=== PATIENT | female | born 1950 | race Caucasian/White ===

== ENCOUNTER → 2018-05-31 16:05 | Outpatient (CLI) | payer MEDICARE, OTHER, SELFPAY | PROVIDERS: PCP Nurse Practitioner Family | DX: H34.02 Transient retinal artery occlusion, left eye (principal) | CPT/HCPCS: 93306 ==

== ENCOUNTER → 2018-06-17 10:30 | Outpatient (CLI) | payer MEDICARE, OTHER, SELFPAY ==
--- NOTE | 2018-06-17 10:25 | BI_ITS ---
MAMMOGRAPHY - BILATERAL SCREENING REASON FOR EXAM: Female, 67 years old. Routine annual screening examination. PERTINENT HISTORY: Non-contributory. TECHNIQUE: Digital bilateral breast blanca (3D mammographic acquisition) in the CC and MLO projections. 2-D mediolateral oblique (MLO) and craniocaudad (CC) views of both breasts were obtained. CAD: Full Field Digital Mammography with Computer Added Detection was performed. COMPARISON: No comparison mammograms available at this time. If any prior films become available, an addendum to this report can be generated. FINDINGS: Breast Composition: The breasts are almost entirely fatty. There are no dominant masses or suspicious calcifications. No other significant abnormalities are identified. BI/SCREENING MAMM (CAD), BILAT IMPRESSION: Negative screening mammogram. Yearly followup mammogram recommended. (A) ASSESSMENT CATEGORY: BIRADS Category 1: Negative. A letter regarding these results will be sent to the patient by the facility within 30 days. Approximately 10% of breast cancers are not detected by mammography. A normal mammogram should not delay biopsy of a clinically suspicious abnormality. [id number] Electronically Signed: Bharathi Conroy MD at 14:47 EDT Tel [phone], Service support ,
== END ==
PROVIDERS: Visit Provider Nurse Practitioner Family
DX: Z12.31 Encounter for screening mammogram for malignant neoplasm of breast (principal)
CPT/HCPCS: 77063; 77067

== ENCOUNTER → 2024-11-18 | Outpatient (CLI) | payer MEDICARE, OTHER, SELFPAY ==
--- NOTE | 2024-11-18 15:12 | CT_ITS ---
PROCEDURE: EXTREMITY LOWER WITHOUT CONTRA REASON FOR EXAM: Planning for right hip replacement. [facility] protocol. TECHNIQUE: Multiple axial tomographic images of the hip joint, knee joint and ankle joint were obtained. Coronal and sagittal reconstruction was obtained as well. CONTRAST: No intravenous contrast administration. COMPARISON: None. FINDINGS: Bones: Marked degree of joint space narrowing and osteoarthritis of the right hip joint with subchondral cystic changes of the acetabulum and right femoral head. Degenerative spur formation of the right femoral head. Imaging of the right knee was obtained. The patient is status post right medial compartment joint replacement. Soft Tissues: Unremarkable. CT/Extremity Lower without Contra IMPRESSION: Marked degree of joint space narrowing and osteoarthritis of the right hip join t as described. Status post medial right knee joint replacement. One or more dose reduction techniques were used (e.g., Automated exposure contr ol, adjustment of the mA and/or kV according to patient size, use of iterative reconstruction technique). Reading Location: [id number]
== END | disposition home or self-care (01) ==
LOC: CT 15:06
PROVIDERS: PCP Family Medicine; Referring Provider Student in an Organized Health Care Education/Training Program; Visit Provider Student in an Organized Health Care Education/Training Program
DX: M16.11 Unilateral primary osteoarthritis, right hip (principal)
CPT/HCPCS: 73700

== ENCOUNTER 2024-12-11 05:41 | Day surgery (SDC) | payer MEDICARE, OTHER, SELFPAY ==
--- NOTE | 2024-11-25 11:58 | EKG12_ITS ---
Test Reason : PREOP Blood Pressure : */* mmHG Vent. Rate : 71 BPM Atrial Rate : 71 BPM P-R Int : 162 ms QRS Dur : 112 ms QT Int : 420 ms P-R-T Axes : 34 -33 4 degrees QTcB Int : 456 ms Sinus rhythm with Premature supraventricular complexes Left axis deviation Septal infarct , age undetermined Abnormal ECG Confirmed by Evert Hoffmann ([id number]), writer editor LYNN STREETER ([id number]) on 11/26/2024 5:55:20 AM Referred By: Casa Kuo Confirmed By: Evert Hoffmann
[2024-11-25 12:31] LABS: Absolute Lymphocyte Count 2.42 X10^3/uL (0.83-4.51); Absolute Neutrophil Count 3.5 X10^3/uL (2.0-7.7); Basophil# 0.05 X10^3/uL; Basophil% 0.8 % (0-1); Eosinophil# 0.17 X10^3/uL; Eosinophils% 2.6 % (0-5); Hematocrit 39.5 % (37-47); Hemoglobin 13.2 g/dL (12.0-15.0); Lymphocyte # 2.42 X10^3/ul (0.83-4.51); Lymphocyte % 36.4 % (19-41); Mean Corp Hgb Conc 33.4 g/dL (32-36); Mean Corpuscular Hgb 29.3 pg (27.0-32.0); Mean Corpuscular Volume 87.6 fL (81-99); Mean Platelet Vol. 10.4 fl (6.2-12.0); Monocyte# 0.47 X10^3/uL; Monocyte% 7.1 % (0-10); NRBC Flagged by Analyzer 0 % (0-5); Neutrophil # 3.52 X10^3/uL (2.7-7.7); Neutrophil % 52.9 % (47-70); Platelet Count 299 K/mm3 (150-450); RBC Distribution Width CV 12.7 % (11.6-14.6); RBC Distribution Width SD 40.4 fl (35.1-43.9); Red Blood Count 4.51 M/mm3 (4.2-5.4); White Blood Count 6.6 K/mm3 (4.4-11.0)
[2024-11-25 13:08] LABS: ALB/GLOB Ratio 1.5 RATIO (0.9-2.4); AST(SGOT) 18 U/L (<=31); Alanine Aminotransfer ALT/SGPT 16 U/L (<=34); Albumin, Serum 4.3 g/dL (3.4-4.8); Alkaline Phosphatase 84 U/L (35-104); Anion Gap 13 (5-15); BUN 18 mg/dL (4-19); BUN/Creat Ratio 21.9 RATIO (10-20); Calcium,Total 9.5 mg/dL (7.6-11.0); Carbon Dioxide 19.8 mmol/L (21.0-32.0); Chloride 105 mmol/L (98-108); Creatinine, Serum 0.84 mg/dL (0.70-1.20); EST Glomerular Filtration Rate 74 (>60); Globulin 2.8 g/dL (2.2-4.2); Glucose 107 mg/dL (70-99); Magnesium 2.1 mg/dL (1.5-2.2); Potassium 4.3 mmol/L (3.3-5.1); Protein, Total 7.1 g/dL (5.9-8.4); Sodium Level 138 mmol/L (133-145); Total Bilirubin 0.28 mg/dL (0.00-1.30)
[2024-11-25 14:15] LABS: Cholesterol 267 mg/dL (<=200); High Density Lipoprotein 69 mg/dL; Low Density Lipoprotein Calc. 167 mg/dL; Triglycerides 154 mg/dL; Very Low Density Lipoprotein 31 mg/dL (5-40); cholesterol:hdl ratio screen 3.88
--- NOTE | 2024-11-26 09:23 | PAT.ANESEVAL ---
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 When Was Last Pacemaker Check QUESTION #4 FULL TEXT: You/Your Family Experience fever (hyperthermia) with Anesthesia Last Oral Intake Last Oral intake: Last Oral Intake NPO since Meds taken in AM with sips of water? 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 Female Yes 11/24/24 11:41 HX of Motion Sickness No 11/24/24 11:41 HX of N/V After Surgery Yes 11/24/24 11:41 Non-Smoker Yes 11/24/24 11:41 Duration of Surgery greater Yes 11/24/24 11:41 than 60 minutes Number of Risk Factors 4 11/24/24 11:41 PONV Score Severe Risk 11/24/24 11:41 Respiratory Assessment Respiratory Assessment - jet dyeing machine operator: Respiratory Tract Infection Hx - jet dyeing machine operator Hx Respiratory Tract Infection No 11/24/24 11:41 STOP Sleep Apnea STOP Sleep Apnea - jet dyeing machine operator: STOP Sleep Apnea - jet dyeing machine operator Hx Hypertension Yes: controlled after wt 11/24/24 11:41 loss Hx Sleep Apnea No 11/24/24 11:41 CPAP No 07/06/15 21:33 BIPAP Do you snore loudly (louder No 11/24/24 11:41 than talking or can be heard Do you often feel tired/ No 11/24/24 11:41 fatigued/ sleepy during daytime? Has anyone observed you stop No 11/24/24 11:41 breathing during sleep? STOP Results Negative 11/24/24 11:41 QUESTION #5 FULL TEXT : Do you snore loudly (louder than talking or can be heard through closed doors)? 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 Specify any problems Hx of Preganancy in last 3 No 11/24/24 11:41 Months Nurse Filling Out Transfusion MGRIFFITH 11/24/24 11:41 & Questions: Date: 11/24/24 11/24/24 11:41 Time: 11:42 11/24/24 11:41 Patient unable to answer at this time (ie. confused, unrespo /Reproduction History /Reproductive History - jet dyeing machine operator: /Reproductive Hx- jet dyeing machine operator Hx Now No 11/24/24 11:41 Gestational Age (in weeks): EDC: Hx Hx Para Hx Section SAB No 11/24/24 11:41 [facility] Medical History (Updated 11/24/24 @ 11:51 by Cynthia Perdomo) Wears glasses Alcohol use Arthritis PONV (postoperative nausea and vomiting) Non-smoker History of echocardiogram Home Medications ?Medication ?Instructions ?Recorded ?Last Taken ?Type loratadine-pseudoephedrine ER 10 1 tab PO DAILY 06/24/15 Unknown History mg-240 mg tablet,extended [id number] (Loratadine-D) acetaminophen 650 mg 650 mg PO DAILY PRN pain 11/24/24 Unknown History tablet,extended release fluticasone propionate 50 1 spray intranasal DAILY PRN 11/24/24 Unknown History mcg/actuation nasal allergy symptoms spray,suspension (Flonase Allergy Relief) [id number] 8 mg-folic 400 1 tab PO DAILY 11/24/24 Unknown History mcg-K 50 mcg-lutein 300 mcg tablet (Cent[facility] Women 50 Plus) Allergy/AdvReac Type Severity Reaction Status Date / Time chlorhexidine Allergy Rash Verified 11/24/24 11:34 chlorhexidine gluconate Allergy Rash Verified 11/24/24 11:34 (From Hibiclens) nickel Allergy Rash Verified 11/24/24 11:34 phenobarbital Allergy Rash Verified 11/24/24 11:34 hydromorphone HCl (From AdvReac Other Verified 11/24/24 11:34 Dilaudid) Surgical History (Updated 11/24/24 @ 11:51 by Cynthia Perdomo) History of esophagogastroduodenoscopy (EGD) History of colonoscopy History of cholecystectomy History of kidney removal History of thumb surgery History of partial hysterectomy History of tonsillectomy and adenoidectomy History of knee replacement procedure of right knee History of bilateral cataract extraction History of total left knee replacement (TKR) Social History Smoking Status: Never smoker Audit: Pertinent Findings Pertinent Findings EKG Perinent findings: 11/25/2024 sinus rhythm with PVCs left axis deviation septal infarct age undetermined Echo (EF%) pertinent findings: 05/31/2018 EF 60% PA pressure 26 Recommendation Anesthesia Recommendation Anesthesia recommendation: OPTIMIZED for anesthesia
[2024-12-11] VITALS (14 sets, daily range): BP systolic 95–136; BP diastolic 47–76; PULSE 63–82; RESP 16–18; TEMP 36.1–36.6; O2SAT 88–99; BMI 36.6
[2024-12-11] MEDS: Magnesium 1 GM over 15 mins IV (06:04)
[2024-12-11] MEDS: Lactated Ringers 1,000 ML 999 ML IV ×2 (06:06→10:52)
[2024-12-11] MEDS: Gabapentin 600 MG Tablet PO (06:30)
[2024-12-11] MEDS: Acetaminophen 500 MG Tablet 1000 MG PO (06:30)
--- NOTE | 2024-12-11 06:39 | PRE.ANES_ITS ---
ASA Classification* ASA Classification ASA Classification: 2 Assessment & Plan Anesthesia* Anesthesia Assessment Anesthesia Assessment: Discussed sedation and/or anesthesia options, risks, benefits, and alternatives with patient/parents/legal guardian/POA. Questions invited. The patient/parents/legal guardian/POA seems to understand and agrees to proceed with anesthesia plan. Reviewed the physical assessment, medical history, allergy history and patient home medications list prior to surgery/procedure/anesthetic and documented any changes. Performed airway and anesthesia risk assessments. Anesthesia Type Anesthesia Type: General History Source History Obtained from:: Patient and Chart Anesthesia Focused Assessment* Temperature: 97.0 F Pulse Rate: 80 Blood Pressure: 128/75 Respiratory Rate: 18 Pulse Ox: 97 Oxygen Delivery Method: Room Air Airway Assessment Mouth opens: >3 cm Mallampati Score: I Teeth Condition: Intact Neck Range of motion (ROM): Full ROM Focused Labs Anesthesia Preop lab: CBC WBC 6.6 K/mm3 (4.4-11.0) 11/25/24 12:11/25/24 RBC 4.51 M/mm3 (4.2-5.4) 11/25/24 12:11/25/24 Hgb 13.2 g/dL (12.0-15.0) 11/25/24 12:11/25/24 Hct 39.5 % (37-47) 11/25/24 12:11/25/24 Plt Count 299 K/mm3 (150-450) 11/25/24 12:11/25/24 CHEMISTRY Potassium 4.3 mmol/L (3.3-5.1) 11/25/24 12:11/25/24 Sodium 138 mmol/L (133-145) 11/25/24 12:11/25/24 Magnesium 2.1 mg/dL (1.5-2.2) 11/25/24 12:11/25/24 BUN 18 mg/dL (4-19) 11/25/24 12:11/25/24 Creatinine 0.84 mg/dL (0.70-1.20) 11/25/24 12:08 11/25/24 Glucose 107 mg/dL (70-99) H 11/25/24 12:11/25/24 COAG PT 13.5 SECONDS (11.7-14.9) 06/07/15 09:24 Pre-Assessment Diagnosis/Proposed Procedure Planned Operative Procedure(s): (R) Total Hip Replacement Robotic Arm Assist Anesthesia History 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 When Was Last Pacemaker Check QUESTION #4 FULL TEXT: You/Your Family Experience fever (hyperthermia) with Anesthesia Last Oral Intake Last Oral intake: Last Oral Intake NPO since 04:00 12/11/24 06:13 Meds taken in AM with sips of No 12/11/24 06:13 water? 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 - oracle erp architect Female Yes 11/24/24 11:41 HX of Motion Sickness No 11/24/24 11:41 HX of N/V After Surgery Yes 11/24/24 11:41 Non-Smoker Yes 11/24/24 11:41 Duration of Surgery greater Yes 11/24/24 11:41 than 60 minutes Number of Risk Factors 4 11/24/24 11:41 PONV Score Severe Risk 11/24/24 11:41 Height & Weight Height & Weight: Anesthesia: Height & Weight Height 5 ft 2 in 12/11/24 06:13 Weight: 91 kg 12/11/24 06:13 Body Mass Index (BMI) 36.6 12/11/24 06:13 Respiratory Assessment Respiratory Assessment - oracle erp architect: Respiratory Tract Infection Hx - oracle erp architect Hx Respiratory Tract Infection No 11/24/24 11:41 STOP Sleep Apnea STOP Sleep Apnea - oracle erp architect: STOP Sleep Apnea - oracle erp architect Hx Hypertension Yes: controlled after wt 11/24/24 11:41 loss Hx Sleep Apnea No 11/24/24 11:41 CPAP No 07/06/15 21:33 BIPAP Do you snore loudly (louder No 11/24/24 11:41 than talking or can be heard Do you often feel tired/ No 11/24/24 11:41 fatigued/ sleepy during daytime? Has anyone observed you stop No 11/24/24 11:41 breathing during sleep? STOP Results Negative 11/24/24 11:41 QUESTION #5 FULL TEXT : Do you snore loudly (louder than talking or can be heard through closed doors)? 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 Specify any problems Hx of Preganancy in last 3 No 11/24/24 11:41 Months Nurse Filling Out Transfusion MGRIFFITH 11/24/24 11:41 & Questions: Date: 11/24/24 11/24/24 11:41 Time: 11:42 11/24/24 11:41 Patient unable to answer at this time (ie. confused, unrespo /Reproduction History /Reproductive History - oracle erp architect: /Reproductive Hx- oracle erp architect Hx Now No 11/24/24 11:41 Gestational Age (in weeks): EDC: Hx Hx Para Hx Section SAB No 11/24/24 11:41 Active Medications Active Medications: Current Medications Generic Name Dose Route Start Last Admin Trade Name Freq PRN Reason Stop Dose Admin Acetaminophen 1,000 mg 12/11/24 10:00 12/11/24 06:30 Acetaminophen 500 Mg Tablet PO 12/11/24 10:01 1,000 mg X1 ONE Administration Sodium Chloride 77.4 ml/ 0 ml 12/11/24 10:00 Ropivacaine 200 mg/ OPERA.SITE 12/11/24 10:01 Epinephrine HCl 0.6 mg/ X1 ONE Ketorolac Tromethamine 30 mg/ Morphine Sulfate 5 mg Dexamethasone Sodium Phosphate 10 mg 12/11/24 10:00 Dexamethasone 10 Mg/Ml Vial IV 12/11/24 10:01 X1 ONE Gabapentin 600 mg 12/11/24 10:00 12/11/24 06:30 Gabapentin 600 Mg Tablet PO 12/11/24 10:01 600 mg X1 ONE Administration Lactated Ringer's 1,000 mls @ 999 mls/hr 12/11/24 10:00 12/11/24 06:06 IV 12/11/24 11:00 999 mls/hr .Q1H1M HAILEE Administration Cefazolin Sodium 2 gm/ N/A 20 mls @ 400 mls/hr 12/11/24 10:00 IV 12/11/24 10:02 PREOP ONE Tranexamic Acid 1,000 mg/ 110 mls @ 660 mls/hr 12/11/24 10:00 Sodium Chloride IV 12/11/24 10:09 X1 ONE Tranexamic Acid 1,000 mg/ 110 mls @ 660 mls/hr 12/11/24 11:00 Sodium Chloride IV 12/11/24 11:09 X1 ONE Lactated Ringer's 1,000 mls @ 999 mls/hr 12/11/24 11:00 IV 12/11/24 12:00 .Q1H1M HAILEE Lactated Ringer's 1,000 mls @ 125 mls/hr 12/11/24 12:00 IV 12/11/24 19:59 .Q8H HAILEE Magnesium Sulfate 1 gm/ 102 mls @ 408 mls/hr 12/11/24 10:00 12/11/24 06:04 Dextrose IV 12/11/24 10:14 408 mls/hr X1 ONE Administration Insulin Human Lispro 1 - 6 unit 12/11/24 10:00 Insulin Lispro 100 Unit/Ml Insuln.Pen SC 12/11/24 16:00 Q4H PRN PRN BG>/= 180, SEE PROTOCOL Protocol PFSH Medical History Wears glasses Alcohol use Arthritis PONV (postoperative nausea and vomiting) Non-smoker History of echocardiogram Home Medications ?Medication ?Instructions ?Recorded ?Last Taken ?Type loratadine-pseudoephedrine ER 10 1 tab PO DAILY 12/10/24 History mg-240 mg tablet,extended [id number] (Loratadine-D) acetaminophen 650 mg 650 mg PO DAILY PRN pain 12/16 Unknown History tablet,extended release fluticasone propionate 50 1 spray intranasal DAILY PRN 11/24/24 12/11/24 History mcg/actuation nasal allergy symptoms spray,suspension (Flonase Allergy Relief) [id number] 8 mg-folic 400 1 tab PO DAILY 11/2412/04/24 History mcg-K 50 mcg-lutein 300 mcg tablet (Century Women 50 Plus) Allergy/AdvReac Type Severity Reaction Status Date / Time chlorhexidine Allergy Rash Verified 12/11/24 06:03 chlorhexidine gluconate Allergy Rash Verified 12/11/24 06:03 (From Hibiclens) nickel Allergy Rash Verified 12/11/24 06:03 phenobarbital Allergy Rash Verified 12/11/24 06:03 hydromorphone HCl (From AdvReac Other Verified 12/11/24 06:03 Dilaudid) Surgical History History of esophagogastroduodenoscopy (EGD) History of colonoscopy History of cholecystectomy History of kidney removal History of thumb surgery History of partial hysterectomy History of tonsillectomy and adenoidectomy History of knee replacement procedure of right knee History of bilateral cataract extraction History of total left knee replacement (TKR) Social History Smoking Status: Never smoker Review of Systems (Anesthesia) ROS Narrative System reviewed and no additional complaints, except as documented.
--- NOTE | 2024-12-11 07:30 | HIP_PTH ---
PATIENT: DANAE LEAL LOC: [facility] [place] U#:[id number] AGE/SX: 74/F ROOM: RE12/11/[address]: Dr. Casa Kuo DO : 1950 BED: DIS: 12/11/2024 SPEC #: [id number] RECD: 12/11/24 10:29 STATUS: ANTHONY OBED #: [id number] GALE: 12/11/24 07:[address]: Casa Kuo DEPT: SURGICAL PATHOLOGY RECD BY: El Robertson ENTERED: 12/11/24 11:23 SP TYPE: TOTAL HIP OTHR DR: Sena Andrade PA-C Tissues: A - Hip, NOS Procedures: Decalcification bone/plaque Surgery Specimen Level III HEADER OPERATION: ERAS, total hip replacement robotic arm assist PRE-OP DIAGNOSIS: Arthritis TISSUE SUBMITTED: A- Femoral head, right hip MICROSCOPIC DIAGNOSIS A. Right femoral head, total hip arthroplasty: * Articular bone with osteoarthritic reactive and degenerative changes. MICROSCOPIC DESCRIPTION Slides are reviewed. GROSS DESCRIPTION A. Received in fixative is one container labeled with the patient's name and designated Right femoral head. The specimen consists of a femoral head measuring 4.5 x 4.7 x 5.8 cm. A applications sales representative . The section will be submitted after decalcification in one cassette. CHRIS/ 12/11/2024 CPT:01142,25142
[2024-12-11] MEDS: Cefazolin 2 GM in Syringe 10 ML IV (07:56)
[2024-12-11 07:59] LABS: Bedside Glucose 133 mg/dL (74-106)
[2024-12-11] MEDS: TXA 1000mg in NS100 100ml (IVPB at Incision) 660 MG IV (08:20)
[2024-12-11] MEDS: dexAMETHasone 10 MG/ML Vial IV (08:20)
[2024-12-11] MEDS: JPS (Morphine 10mg/ml) OPERA.SITE (09:10)
[2024-12-11] MEDS: TXA 1000mg in NS100 100ml (IVPB at Closure) 660 MG IV (09:30)
--- NOTE | 2024-12-11 10:25 | RAD_ITS ---
PROCEDURE: HIP MIN 2 VIEWS (PORTABLE) 12/11/2024 REASON FOR EXAM: POST OP Right total hip replacement. TECHNIQUE: Two views of the right hip were obtained. COMPARISON: None FINDINGS: The patient is status post right total hip replacement. There is good alignment. Postoperative soft tissue changes. Osteoarthritis of the left hip joint. RAD/Hip Min 2 Views (Portable) IMPRESSION: Status post right total hip replacement. There is good alignment. Postoperative soft tissue changes. [facility]
--- NOTE | 2024-12-11 10:51 | PCM.POST.ANE ---
Anesthesia: Postop Eval I Current Vital Signs Temperature: 97.6 F Pulse Rate: 81 Blood Pressure: 111/68 Respiratory Rate: 16 Pulse Ox: 98 Oxygen Delivery Method: Nasal Cannula Oxygen Flow Rate (L/min): 3 Assessment Airway patent: Yes Spontaneous unlabored respirations: Yes Mental status: Awake and Calm nausea: No Vomiting: No Anesthesia Complication: No Fluid Hydration Crystalloid volume administer (ml): 1,500 Total IV fluid infused: 1,500 Progress Note Anesthesia document: Postop Eval 1 completed: Yes
[2024-12-11] MEDS: oxyCODONE 5 MG Tablet PO (12:11)
[2024-12-11] MEDS: Cefazolin 1 GM/50 ML BAG IV (12:23)
--- NOTE | 2024-12-11 13:38 | SUR.PHASEII ---
PT Lexis notified that pt is ready for therapy visit.
--- NOTE | 2024-12-11 13:50 | PCM.OPRPT ---
Operative Report (Standard) Operative Information Date of Procedure: 12/11/24 Pre-Operative Diagnosis: Right hip osteoarthritis Post-Operative Diagnosis: Right hip osteoarthritis Surgery/Procedure Performed: Robotic arm assisted right total hip arthroplasty tip stretcher: Yes Deaf/Hard Of Hearing Specialist: Vicki Grubbs Tasks completed by property management assistant: Opening & closing and Implanting device Additional assistant professor of criminal justice?: No Type of Anesthesia: General RN Documented Start/Stop Times: Operation Date: 12/11/24 07:30 Case Time Into Pre-Op 12/11/24 05:49 Out of Pre-Op 12/11/24 07:39 Anesthesia Start 12/11/24 07:44 Into Room 12/11/24 07:44 Procedure Start 12/11/24 08:16 Procedure End 12/11/24 10:02 Anesthesia End 12/11/24 10:09 Out of Room 12/11/24 10:09 Into Recovery 12/11/24 10:11 Out of Recovery 12/11/24 11:32 Into Phase II Recovery 12/11/24 11:33 Procedure Start Time: 08:16 Procedure Stop Time: 10:02 Select all DRAINS/GRAFTS/IMPLANTS that apply: Implanted device Implanted device details: [place] insignia high offset hip stem size #4, Biolox delta ceramic V40 femoral head 36 mm -5 mm neck length, Trident X3 polyethylene insert, Trident 2 TriTanium cluster hole acetabular shell 48 mm diameter Estimated Blood Loss: 50 cc Specimen collected: Yes Description of specimen(s) removed: Right femoral head Description of surgery: Indications: This is an 74-year-old female seen in the outpatient setting for right hip pain. X-rays revealed severe right hip osteoarthritis. She has received several corticosteroid injections with diminishing relief. She failed oral [id number]-[id number] analgesics including NSAIDs and Tylenol, activity modification. I recommended surgical intervention the form of right total hip arthroplasty. I reviewed the procedure with the patient, its risk, benefits, alternatives. Risks included but were not limited to bleeding, infection, loss of life or limb, risk of anesthesia, neurovascular injury, persistent pain, instability, need for additional surgery, failure of orthopedic hardware, loosening, osteolysis, need for assistive devices long-term, leg length discrepancy. Patient expressed understanding wish to proceed with surgery. Description of procedure: I greeted the patient in same-day surgery holding area the day of surgery. She was identified by name, medical record number, and date of . All questions were answered to patient satisfaction. The operative extremity was marked with a surgical marker. Informed consent was confirmed with the patient. At time of her procedure, patient brought the operative suite and positioned supine initially on a standard operating table. General anesthesia was induced and endotracheal tube placed and secured. Patient was then positioned in a lateral decubitus position with the right side up. An axillary roll was placed under the patient's left axilla. The left fibular head was free. We then prepped and draped the right lower extremity in normal, sterile orthopedic fashion. Prior to the procedure, the [facility] plan was reviewed and appeared appropriate based on the patient's CT scan and anatomy. We performed a timeout with all parties in attendance in agreement with the side, site, and operation to be performed. No concerns were voiced and would like to proceed. 1 g TXA IV as well as 2 g Ancef was administered prior to the incision by anesthesia staff. 1 g TXA IV was administered at time of closure additionally. I first elected to place our pelvic array with a curvilinear incision over the iliac crest just posterior to the ASIS. I bluntly dissected down the level of the periosteum. I then drilled 3 intracortical pins with excellent cortical purchase. Pelvic array was then assembled and positioned appropriately. I then turned my attention to the hip. A standard posterior lateral incision was made curvilinear over the posterior lateral hip, centered on the tip of the greater trochanter. Full-thickness skin incision was made, approximately 12 cm in length. I sharply dissected down the level of the fascia luis enrique. Fascia luis enrique was then incised in line with the incision. I bluntly dissected through the raphae of the gluteus blanca. Femoral checkpoint was placed at this point. We then registered her femoral anatomy prior to dislocating the hip. I then internally rotated the hip. Limited gluteal bursectomy was performed to identify the short external rotators. A Cobra retractor was placed in his gluteus medius. Short external rotators were taken down with Bovie cautery and tagged for later repair with #2 Ethibond suture. This identified the underlying capsule. A hockey-stick shaped capsulotomy was made over the femoral neck carried posteriorly to the acetabular labrum. Labrum was released and the hip was dislocated. I then marked a standard femoral neck cut 1 fingerbreadth above the lesser trochanter. Sagittal saw was used to carefully cut the femoral neck. Femoral head was removed and examined and appeared benign. It was sent to pathology per hospital policy. I then turned my attention to the acetabulum. Cobra retractors were placed anterior and posteriorly. Self-retaining retractor was placed superiorly. Acetabular labrum was excised with a long handled knife. Acetabular pulmonary was excised with Bovie cautery. Hemostasis was excellent at this point. I then registered the acetabulum with the VYou robot successfully. I then brought in the VYou robot with the acetabular reaming arm to a size 48. This was reamed and the planned position to the planned depth. Reamer was then removed. There was excellent bleeding bone at the base and excellent remaining anterior posterior florentino of the acetabulum. 48 mm acetabular component was selected for and attached to the driver merchandiser arm of the robot. I placed the acetabular component near planned position before attaching to the robot. The robot then held the shell in position while I impacted it to an appropriate depth. The acetabular cup was then removed from the robotic arm. It had excellent rim fit. I then selected a standard posterior lipped liner and impacted this per massage therapist recommendations. I then turned my attention to the femur. Box chisel was then utilized to gain access to the femoral canal. Canal finder was placed. Sequential broaches were used and press-fit manner. A final size 4 achieved excellent vertical and rotational stability. We then trialed with a 127 degree hip stem as templated. A -5 mm was trialed. Stability was excellent and leg lengths were reproduced. Trials were then removed. We copiously irrigated the wound with normal saline solution, Betadine solution. A size 4 stem was then impacted with excellent fixation. Final head was then impacted over clean, dry Nguyen taper neck. Final reduction was performed. A posterior capsular repair was performed with #2 Ethibond suture and bone tunnels, as well as the short external rotator repair. Femoral checkpoint was removed. Pelvic array pins were removed. IT band was closed watertight with #1 strata fix suture. Deeper fascial layers were closed with 0 Vicryl suture in interrupted fashion. Subcutaneous layers were reapproximated with 2-0 Vicryl suture and skin reapproximated with running subcuticular 3?0 strata fix and skin glue. Pelvic array incision was closed with buried 2-0 Vicryl suture and skin glue.. A silver dressing was applied. Patient tolerated procedure well without complication. He was positioned back in the supine position on his hospital bed. He was transferred to PACU in stable condition. A pillow was placed between the patient's leg to be present while he is in bed. Need for skilled assistant professor of criminal justice: Vicki Grubbs PA-C was critical to the outcome of the case. During the course of the procedure the physician assistant professor of criminal justice played a vital role. Her intimate knowledge of my steps in the procedure aided in safe and expedient completion of the procedure. The PA played a vital role in positioning particularly in obtaining the appropriate positioning. The PA was also vital in the retraction of soft tissues during the exposure and projecting vital structures. The PA was also vital and protecting soft tissues during times of bony cuts. She also played a vital role in closure with my direct supervision. The PA was also important during reduction and dislocation of the joint and trials intraoperatively. Post Operative Plan: Plan for same-day discharge after meeting same-day surgery criteria and clearance by physical therapy. Weightbearing: Weightbearing as tolerated right lower extremity, posterior hip precautions. Pillows between legs while in bed Antibiotics: Ancef 1 g every 8 hours x 3 doses DVT Prophylaxis: Aspirin 81 mg twice daily to start tomorrow Vazquez: None Dressing: Maintain silver dressing x 5 days X-Rays: PACU x-rays were reviewed demonstrated well-positioned right total hip arthroplasty implant. Follow-up 2-week x-rays in the office. Follow-up: 2 weeks in my office as scheduled Surgical Findings: Stable right total hip arthroplasty following final implantation Complications Complications: No Admit VTE Documentation VTE Present on Admission: No VTE Mechan Device Prophylaxis: SCD's and Knee High ELY Hose VTE Pharm Prophylaxis ordered?: Yes
--- NOTE | 2024-12-11 14:14 | POSTOPAN2_ITS ---
Anesthesia Postop Eval I Sum Postop Eval Completion status Anesthesia document: Postop Eval 1 completed: Yes Anesthesia Postop Eval I Summary Anesthesia Postop Eval I Summary: Anesthesia Postop Eval I: Assessment Summary Airway patent Yes 12/11/24 10:52 [email or web address] Spontaneous unlabored Yes 12/11/24 10:52 [email or web address] respirations Mental status Awake,Calm 12/11/24 10:52 [email or web address] nausea No 12/11/24 10:52 [email or web address] Vomiting No 12/11/24 10:52 [email or web address] Anesthesia Postop Eval I: Fluid Summary Crystalloid volume administer 1,500 12/11/24 10:52 [email or web address] (ml) Colloids volume administered ( ml) Blood Product volume administered (ml) Total IV fluid infused 1,500 12/11/24 10:52 [email or web address] Anesthesia Postop Eval I: Summary Notes Anesthesia Complication No 12/11/24 10:52 [email or web address] Anesthesia Complication Comment: Post-operative progress note Anesthesia: Postop Eval II Evaluation Mental status: Awake Pain Level: 3 nausea: No Vomiting: No
--- NOTE | 2024-12-11 14:14 | PCM.POSTANE2 ---
Anesthesia Postop Eval I Sum Postop Eval Completion status Anesthesia document: Postop Eval 1 completed: Yes Anesthesia Postop Eval I Summary Anesthesia Postop Eval I Summary: Anesthesia Postop Eval I: Assessment Summary Airway patent Yes 12/11/24 10:52 FULL STACK [email or web address] Spontaneous unlabored Yes 12/11/24 10:52 FULL STACK [email or web address] respirations Mental status Awake,Calm 12/11/24 10:52 FULL STACK [email or web address] nausea No 12/11/24 10:52 FULL STACK [email or web address] Vomiting No 12/11/24 10:52 FULL [email or web address] [email or web address] Anesthesia Postop Eval I: Fluid Summary Crystalloid volume administer 1,500 12/11/24 10:52 FULL [email or web address] [email or web address] (ml) Colloids volume administered ( ml) Blood Product volume administered (ml) Total IV fluid infused 1,500 12/11/24 10:52 FULL [email or web address] [email or web address] Anesthesia Postop Eval I: Summary Notes Anesthesia Complication No 12/11/24 10:52 FULL [email or web address] [email or web address] Anesthesia Complication Comment: Post-operative progress note Anesthesia: Postop Eval II Evaluation Mental status: Awake Pain Level: 3 nausea: No Vomiting: No
== END 2024-12-11 15:13 | disposition home or self-care (01) ==
LOC: SDC 05:41 → AC 05:42
PROVIDERS: PCP Family Medicine; Referring Provider Student in an Organized Health Care Education/Training Program; Visit Provider Student in an Organized Health Care Education/Training Program
PROC: 8E0Y0CZ Robotic Assisted Procedure of Lower Extremity, Open Approach (ICD-10-PCS; CPT 27130; principal; 2024-12-11 07:00)
DX: M16.11 Unilateral primary osteoarthritis, right hip (principal); I10 Essential (primary) hypertension; E07.9 Disorder of thyroid, unspecified; Z96.642 Presence of left artificial hip joint; Z79.899 Other long term (current) drug therapy
CPT/HCPCS: 29915; S2900; 01202; 36415; 73502; 80053; 80061; 82962; 83735; 85025; 87081; 88305; 88311; 93005; 97162; C1776; J2405; J3475